=== PATIENT | female | born 1990 | race Two or more races ===

== ENCOUNTER 2022-06-21 07:03 | Inpatient (IN) ==
--- NOTE | 2022-06-10 08:49 | Anesthesiology Consultation ---
Date of Service June 10, 2022 Assessment & Plan (1) Encounter for pre-operative examination: COVID screening: Per assessment on 06/10: No known COVID-19 positive contacts or current COVID-19 related symptoms. Travel screen negative. Patient vaccinated. At surgeon discretion if preop Covid testing being done. 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 Surgery Operation Date: 06/21/22 08:50 Proposed Procedures p Primary Section - Karin Aguillon MD Height/Weight Height: 5 ft Weight: 77.111 kg Allergies Allergy/AdvReac Type Severity Reaction Status Date / Time No Known Allergies Allergy Verified 06/10/22 08:00 Medications Home Medications Medication Instructions Recorded Confirmed Last Taken famotidine 20 mg tablet (Pepcid) 20 mg PO DAILY PRN Acid Reflux 06/10/22 06/10/22 Unknown vitamins no.144-folic 2 tab PO QAM 06/10/22 06/10/22 Unknown acid 400 mcg chewable tablet () Past Medical History Medical History Acid reflux History of COVID-19 03/2022 (> 90 days ago) > mild symptoms, resolved Past Family History Family History Other No family history of adverse response to anesthesia Past Surgical History Surgical History History of esophagogastroduodenoscopy (EGD) Social History Smoking Status: Former smoker tobacco type: cigarettes Smoking End Date: ONLY TEENAGER Hx Alcohol Use: No substance use type: does not use
[~2022-06-21 07:03] MED LIST: CITRIC ACID/SODIUM CITRATE 15 ML UDC PO SCH; ceFAZolin 2000MG 2,000 MG/15 ML SYR IV SCH
[2022-06-21] MEDS ORDERED: LACTATED RINGER'S 1,000 ML IV SCH ×2 (07:45→13:15)
[2022-06-21 07:53] LABS: Basophils # (auto) 0.04 K/uL (0-0.2); Basophils % (auto) 0.3 %; Eosinophils % (auto) 0.8 %; Hematocrit (blood only) 33.9 % (34.1-44.9); Hemoglobin 11.1 g/dl (12.0-16.0); Immature Granulocytes # (auto) 0.11 K/uL (0.00-0.02); Immature Granulocytes % (auto) 0.9 %; Lymphocytes # (auto) 2.52 K/uL (1.2-3.4); Lymphocytes % (auto) 19.7 %; Mean Corpuscular Hemoglobin 26.7 pg (25.0-34.0); Mean Corpuscular Hgb Conc 32.7 g/dL (32.0-36.0); Mean Corpuscular Volume 81.5 fL (80.0-100.0); Mean Platelet Volume 10.2 fL (9.4-12.3); Monocytes # (auto) 0.92 K/uL (0.24-0.82); Monocytes % (auto) 7.2 %; Neutrophils # (auto) 9.12 K/uL (1.4-6.5); Neutrophils % (auto) 71.1 %; Platelet Count 362 K/uL (130-400); RDW Coefficient of Variation 14.8 % (11.5-14.5); RDW Standard Deviation 43.1 fL (36.4-46.3); Red Blood Count 4.16 M/uL (3.93-5.22); White Blood Count 12.81 K/ul (4.8-10.8)
[2022-06-21] MEDS ORDERED: fentaNYL citrate 100 MCG/2 ML VIAL ONE (07:58)
[2022-06-21] MEDS ORDERED: MoRPHine SULFATE PF 1 MG/ML 10 ML AMP/VIAL ONE (07:58)
[2022-06-21] MEDS ORDERED: KETOROLAC 30 MG/ML VIAL ONE (08:03)
[2022-06-21] MEDS ORDERED: OXYTOCIN 10 UNITS/ML 10ML VIAL ONE (08:03)
[2022-06-21] MEDS ORDERED: ONDANSETRON INJ 2 MG/ML 2 ML VIAL ONE (08:03)
--- NOTE | 2022-06-21 11:52 | History & Physical Bridge Note ---
Date of Service June 21, 2022 History & Physical Bridge Note I have examined the patient, reviewed the History & Physical and in the interval since the performance of the History & Physical I have noted the following changes of clinical significance: no changes noted Bed side US: Carmencita, FHR 140 Signed and informed consent.
[2022-06-21] MEDS ORDERED: NALOXONE HCL 1 MG in SODIUM CHLORIDE 0.9% 1000ML 1,000 ML IV PRN (12:20)
[2022-06-21] MEDS ORDERED: HYDROmorphone INJ 0.5 MG/0.5 ML SYR IV PRN (12:20)
[2022-06-21] MEDS ORDERED: MoRPHine SULFATE PF 1 MG/ML 10 ML AMP/VIAL INT SPINAL ONE (12:20)
[2022-06-21] MEDS ORDERED: NALBUPHINE HCL INJ 10 MG/ML AMP IV PRN (12:20)
[2022-06-21] MEDS ORDERED: ACETAMINOPHEN 1000 MG/100 ML IV IV PRN (12:20)
[2022-06-21] MEDS ORDERED: NALOXONE HCL 0.4 MG/1 ML VIAL/CARP IV PRN (12:20)
[2022-06-21] MEDS ORDERED: LACTATED RINGER'S 500 ML IV PRN (12:20)
[2022-06-21] MEDS ORDERED: PROMETHAZINE HCL 12.5 MG in SODIUM CHLORIDE 0.9% 50 ML IV PRN (12:20)
[2022-06-21] MEDS ORDERED: ONDANSETRON INJ 2 MG/ML 2 ML VIAL IV PRN (12:20)
[2022-06-21] MEDS ORDERED: NALOXONE HCL 0.08 MG in SYRINGE 1.8 ML IV PRN (12:20)
[2022-06-21] MEDS ORDERED: diphenhydrAMINE 50 MG/ML VIAL IV PRN (12:20)
[2022-06-21] MEDS ORDERED: ePHEDrine sulfate 50 MG/ML AMP IV PRN (12:20)
[2022-06-21] MEDS ORDERED: DC INTRASPINAL MORPHINE SCH (12:30)
[2022-06-21] MEDS ORDERED: NO NARCOTICS OR SEDATIVES SCH (12:30)
[2022-06-21] MEDS ORDERED: SODIUM CHLORIDE 0.9% 1000ML 1,000 ML IV SCH (12:30)
[2022-06-21] MEDS ORDERED: HYDROCORTISONE ACETATE 25 MG SUPP PR PRN (13:03)
[2022-06-21] MEDS ORDERED: MAGNESIUM HYDROXIDE SUSP 30 ML UDC PO PRN (13:03)
[2022-06-21] MEDS ORDERED: BENZOCAINE 20% AER SPR 82.5 GM CAN EXT PRN (13:03)
[2022-06-21] MEDS ORDERED: SENNA 8.6 MG TAB PO PRN (13:03)
[2022-06-21] MEDS ORDERED: DIPHTHERIA/TETANUS/PERTUSSIS 0.5 ML SYR/VIAL IM ONE (13:03)
[2022-06-21] MEDS ORDERED: OXYTOCIN 20 UNITS in D5W AND LACTATED RINGERS 1,000 ML IV SCH (13:30)
[2022-06-21] MEDS: KETOROLAC 30 MG/ML VIAL IV PRN ×2 (13:53→20:45)
--- NOTE | 2022-06-21 14:04 | History & Physical Bridge Note ---
Date of Service June 21, 2022 History & Physical Bridge Note I have examined the patient, reviewed the History & Physical and in the interval since the performance of the History & Physical I have noted the following changes of clinical significance: no changes noted
--- NOTE | 2022-06-21 14:05 | Post Operative Brief Note ---
Immediate Post Op Note v1 Date of Surgery June 21, 2022 Pre & Post Diagnosis Operation Date: 06/21/22 08:50 Pre-Op Diagnosis: term intrauterine breech presentation low transverse uterine section Post-Op Diagnosis: low transverse section I identified the patient and participated in the time-out.: Yes Procedure Operation Date: 06/21/22 08:50 Actual Procedures p Section in LD live female at 1230 - Karin Aguillon MD Surgeon Karin Aguillon MD Cleaner Signs YESENIA Sinclair Estimated Blood Loss 400 Findings Consistent with Post-Op Diagnosis Drains Rueda Catheter Anesthesia Type Spinal Complications none
--- NOTE | 2022-06-21 14:22 | Anesthesiology Progress Note ---
Date of Service June 21, 2022 Anesthesia Post Procedure Vital Signs Vital Signs: Temp Pulse Resp BP Pulse Ox 06/21/22 14:16 20 06/21/22 14:06 18 06/21/22 13:56 18 06/21/22 13:46 18 06/21/22 13:36 16 06/21/22 13:20 98.2 F 18 06/21/22 07:45 99.1 F 20 06/21/22 14:19 77 98 06/21/22 14:15 73 147/65 H 06/21/22 14:14 87 98 06/21/22 14:09 76 95 06/21/22 14:05 160 H 127/56 L 06/21/22 14:04 83 98 06/21/22 13:59 73 99 06/21/22 13:57 66 120/64 06/21/22 13:54 72 98 06/21/22 13:49 70 97 06/21/22 13:45 141 H 127/59 L 06/21/22 13:44 77 98 06/21/22 13:35 203 H 129/78 06/21/22 13:34 68 90 06/21/22 13:31 66 91 06/21/22 13:29 64 100 06/21/22 13:25 90 06/21/22 13:25 64 06/21/22 13:25 62 123/71 06/21/22 13:24 65 100 06/21/22 13:19 66 100 06/21/22 13:15 65 121/68 06/21/22 07:19 80 120/76 Pain Intensity Bilateral Lower Abdomen: Pain Intensity: 4 Transfer of Care Handoff Completed per policy Notes Mental Status: alert / awake / arousable and participated in evaluation Patient Amnestic to Procedure: Yes Nausea / Vomiting: adequately controlled Pain: adequately controlled Airway Patency, RR, SpO2: stable & adequate BP & HR: stable & adequate Hydration State: stable & adequate Neuraxial Anesthesia: was administered and sensory block is resolving Anesthetic Complications: no major complications apparent and Pt Satisfied with anesthetic care
--- NOTE | 2022-06-21 14:31 | Operative Report (OR) ---
DATE OF PROCEDURE: 06/21/2022. PREOPERATIVE DIAGNOSES: The patient is a 32-year-old G1, P0, at 39.3 weeks of gestation with breech presentation, desire for primary . POSTOPERATIVE DIAGNOSES: The patient is a 32-year-old G1, P0, at 39.3 weeks of gestation with breech presentation, desire primary . PROCEDURE: Primary low transverse with Pfannenstiel skin incision. SURGEON: Karin Aguillon MD VISUAL DESIGN LEAD: YESENIA Veronica. ESTIMATED BLOOD LOSS: 500 mL DRAINS: Rueda catheter drained 200 mL of clear urine. ANESTHESIA: Spinal. Dr. Worrell. COMPLICATIONS: None. FINDINGS: Baby was a viable female delivered at 12:30 p.m. Apgars were 9/9, weight was 3312 grams. Baby was in a segun breech presentation. Maternal findings; normal uterus, fallopian tubes, and polycystic appearance of ovaries. DESCRIPTION OF PROCEDURE: The patient was taken to the operating room where spinal anesthesia was given without difficulty. She was placed in dorsal supine position with a leftward tilt. She was prepared and draped in the usual sterile fashion. A Pfannenstiel skin incision was made and carried through to the underlying layer of fascia with the Bovie. Fascia was incised in the midline and incision was extended laterally with the help of Sosa scissors. Lower aspect of the fascial incision was then grasped with 2 Ghulam clamps, elevated, and underlying rectus muscles were dissected off sharply with Sosa scissors. Same thing was done on the upper aspect of the fascial incision. Rectus muscles were in the midline. The peritoneum was entered bluntly with fingers. Peritoneal incision was extended superiorly and inferiorly with good visualization of bladder. Bladder blade was inserted. Vesicouterine peritoneum was identified, grasped with pickups, and entered sharply with Metzenbaum scissors and a bladder flap was created digitally and bladder blade was reinserted. Lower uterine segment was incised in transverse fashion. Incision was extended laterally with the help of Sosa scissors and the baby's buttocks were delivered and then the legs and then body and arms in flexion position and then followed by head without difficulty. Mouth and nose were suctioned. Cord was clamped x2 and cut and baby was handed off to the waiting pediatric team with Dr. Porter. Placenta was delivered manually as intact and complete. Uterus was exteriorized and cleared of all clots and debris. Uterine incision was repaired with 0 Vicryl in a running locked fashion and a second imbricating layer was placed with another 2-0 Vicryl in a running locked fashion. Excellent hemostasis was achieved. Cul-de-sac was irrigated with warm normal saline and suctioned. The ovaries appeared to be polycystic with multiple peripheral small mm'ic follicles with no discrete nor large cyst. It was also slightly larger in size with increased stroma as would be expected for polycystic ovaries. Bilateral fallopian tubes and posterior serosa wer WNL. Uterus was returned to the abdomen. Pelvis was irrigated with warm normal saline and suctioned. Incision was checked to be again hemostatic. Parietal peritoneum was reapproximated with 3-0 Vicryl in a running fashion. The rectus muscles were reapproximated with the same suture in a running fashion. Rectus fascia was closed with 0 Vicryl in a running fashion. Subcuticular fat tissue was brought together with 2-0 Vicryl in a running fashion. The skin was closed with 4-0 Monocryl in a subcuticular fashion. The patient tolerated the procedure well. Sponge, lap, needle count was correct x3. No complications happened. I was present and my PA, was present during whole procedure. The patient was taken to the recovery room in stable condition. Job ID: [id number] [facility]
[2022-06-21] MEDS: SIMETHICONE 80 MG CHEW PO SCH ×2 (17:33→20:44)
[2022-06-21] MEDS: DOCUSATE SODIUM 100 MG CAP PO SCH (20:44)
[2022-06-21] MEDS ORDERED: OXYTOCIN 20 UNITS in LACTATED RINGER'S 1,000 ML IV SCH (21:30)
[2022-06-22] MEDS: KETOROLAC 30 MG/ML VIAL IV PRN (06:24)
[2022-06-22] MEDS ORDERED: diphenhydrAMINE 50 MG/ML VIAL IV PRN (06:25)
[2022-06-22] MEDS ORDERED: PROMETHAZINE HCL 25 MG in SODIUM CHLORIDE 0.9% 50 ML IV PRN (06:25)
[2022-06-22] MEDS ORDERED: diphenhydrAMINE Capsule 25 MG CAP PO PRN (06:25)
[2022-06-22] MEDS ORDERED: ONDANSETRON INJ 2 MG/ML 2 ML VIAL IV PRN (06:25)
[2022-06-22 06:37] LABS: Basophils # (auto) 0.03 K/uL (0-0.2); Basophils % (auto) 0.3 %; Eosinophils % (auto) 0.9 %; Hematocrit (blood only) 27.8 % (34.1-44.9); Hemoglobin 9.2 g/dl (12.0-16.0); Immature Granulocytes # (auto) 0.08 K/uL (0.00-0.02); Immature Granulocytes % (auto) 0.7 %; Lymphocytes # (auto) 2.08 K/uL (1.2-3.4); Lymphocytes % (auto) 18.9 %; Mean Corpuscular Hemoglobin 26.8 pg (25.0-34.0); Mean Corpuscular Hgb Conc 33.1 g/dL (32.0-36.0); Mean Platelet Volume 9.5 fL (9.4-12.3); Monocytes # (auto) 0.78 K/uL (0.24-0.82); Monocytes % (auto) 7.1 %; Neutrophils # (auto) 7.96 K/uL (1.4-6.5); Neutrophils % (auto) 72.1 %; Platelet Count 261 K/uL (130-400); RDW Coefficient of Variation 14.6 % (11.5-14.5); RDW Standard Deviation 42.5 fL (36.4-46.3); Red Blood Count 3.43 M/uL (3.93-5.22); White Blood Count 11.03 K/ul (4.8-10.8)
[2022-06-22] MEDS: SIMETHICONE 80 MG CHEW PO SCH ×4 (09:10→20:31)
[2022-06-22] MEDS: DOCUSATE SODIUM 100 MG CAP PO SCH ×2 (09:11→20:34)
[2022-06-22] MEDS: FERROUS SULFATE 325 MG TAB PO SCH (09:11)
[2022-06-22] MEDS: PRENATAL VITAMIN 1 TAB PO SCH (09:11)
--- NOTE | 2022-06-22 10:36 | Obstetrical Progress Note ---
Date of Service June 22, 2022 Assessment & Plan (1) delivery delivered: C/sec day #2 pt doing well continue day 2 care Subjective Ambulation: ambulating normally Voiding: no voiding problems Passing Gas:: Yes Diet Tolerance:: clear liquids Lochia:: Small Feeding Type:: breast feeding Review of Systems All systems reviewed & are unremarkable except as noted in HPI & below Physical Exam Constitutional WD/WN, vitals as above well developed and well nourished Eyes PERRL, conjunctivae normal, anicteric sclerae ENMT external ear and nose normal, oropharynx normal Neck trachea midline, no thyromegaly Respiratory normal respiratory effort, lungs clear to auscultation Cardiovascular RRR, no murmur, no edema Chest (Breasts) normal inspection/palpation of breasts Gastrointestinal (Abdomen) normal bowel sounds, soft, nontender, no hepatosplenomegaly Musculoskeletal no cyanosis or clubbing, extremities motor strength 5/5 Skin no rashes, warm and dry + incision (Clean,dry and intact) Neurologic patellar DTR's 2+ bilat, sensation intact Psychiatric A+Ox3, euthymic affect Genitourinary normal external appearance Lymphatic no cervical or axillary lymphadenopathy Results & Data ([facility]) Vital Signs (Past 12 Hours) Vital Signs Temp Pulse Resp BP BP Pulse Ox O2 Del Method 06/22/22 07:50 37.2 C 71 16 107/70 98 Room Air 06/22/22 06:05 18 98 06/22/22 05:00 18 97 06/22/22 04:00 37.1 C 73 18 116/77 98 Room Air 06/22/22 04:00 18 98 06/22/22 03:00 16 96 06/22/22 02:00 18 97 06/22/22 00:57 18 95 06/21/22 23:30 37.0 C 62 16 113/72 99 Room Air 06/22/22 00:06 16 97 06/21/22 23:00 18 99
[2022-06-22] MEDS: IBUPROFEN 600 MG TAB PO PRN ×3 (12:34→21:44)
[2022-06-22] MEDS: oxyCODONE/ACETAMINOPHEN 5mg/325mg TAB PO PRN ×3 (12:35→21:45)
[2022-06-22] MEDS ORDERED: bisacodyL 5 MG TABEC PO SCH (20:00)
[2022-06-23] MEDS: IBUPROFEN 600 MG TAB PO PRN ×3 (02:34→12:25)
[2022-06-23] MEDS: oxyCODONE/ACETAMINOPHEN 5mg/325mg TAB PO PRN ×3 (02:34→12:24)
[2022-06-23 06:49] LABS: Hematocrit (blood only) 28.1 % (34.1-44.9); Hemoglobin 9.1 g/dl (12.0-16.0)
[2022-06-23] MEDS: SIMETHICONE 80 MG CHEW PO SCH ×2 (08:28→12:36)
[2022-06-23] MEDS: DOCUSATE SODIUM 100 MG CAP PO SCH (08:28)
[2022-06-23] MEDS: FERROUS SULFATE 325 MG TAB PO SCH (08:29)
[2022-06-23] MEDS: PRENATAL VITAMIN 1 TAB PO SCH (08:29)
--- NOTE | 2022-06-23 11:19 | Obstetrical Progress Note ---
Date of Service June 23, 2022 Subjective Ambulation: ambulating normally Voiding: no voiding problems Passing Gas:: Yes Diet Tolerance:: regular diet Lochia:: Small Feeding Type:: breast feeding Current Pain Level(1-10): 0 doing well/wants to go home today Physical Exam Constitutional WD/WN, vitals as above Gastrointestinal (Abdomen) normal bowel sounds, soft, nontender, no hepatosplenomegaly Inspection/Auscultation: + abdominal surgical incision incision c/d/i Musculoskeletal Extremities: extremities normal to inspection neg Miguel Ángel's Skin no rashes, warm and dry Neurologic patellar DTR's 2+ bilat, sensation intact Psychiatric A+Ox3, euthymic affect Results & Data ([facility]) Vital Signs (Past 12 Hours) Vital Signs Temp Pulse Resp BP Pulse Ox O2 Del Method 06/23/22 07:35 37.2 C 74 18 122/80 100 Room Air 06/22/22 23:40 37.2 C 66 18 134/81 Laboratory Results 06/21/22 06/21/22 06/21/22 07:16 07:20 07:28 WBC 12.81 H RBC 4.16 Hgb 11.1 L Hct 33.9 L MCV 81.5 MCH 26.7 MCHC 32.7 RDW Std Deviation 43.1 RDW Coeff of [place] 14.8 H Plt Count 362 MPV 10.2 Immature Gran % (Auto) 0.9 Neut % (Auto) 71.1 Lymph % (Auto) 19.7 [place] % (Auto) 7.2 Eos % (Auto) 0.8 Baso % (Auto) 0.3 Neut # (Auto) 9.12 H Lymph # (Auto) 2.52 [place] # (Auto) 0.92 H Eos # (Auto) 0.10 Baso # (Auto) 0.04 Immature Gran # (Auto) 0.11 H SARS-CoV-2, RNA, NAAT NEGATIVE Blood Type O Negative Antibody Screen NEGATIVE 06/22/22 06/23/22 06:20 06:00 WBC 11.03 H RBC 3.43 L Hgb 9.2 L 9.1 L Hct 27.8 L 28.1 L MCV 81.0 MCH 26.8 MCHC 33.1 RDW Std Deviation 42.5 RDW Coeff of [place] 14.6 H Plt Count 261 MPV 9.5 Immature Gran % (Auto) 0.7 Neut % (Auto) 72.1 Lymph % (Auto) 18.9 [place] % (Auto) 7.1 Eos % (Auto) 0.9 Baso % (Auto) 0.3 Neut # (Auto) 7.96 H Lymph # (Auto) 2.08 [place] # (Auto) 0.78 Eos # (Auto) 0.10 Baso # (Auto) 0.03 Immature Gran # (Auto) 0.08 H SARS-CoV-2, RNA, NAAT Blood Type Antibody Screen
[2022-06-23] MEDS ORDERED: bisacodyL 10 MG SUPP PR PRN (13:03)
== END 2022-06-23 13:42 | disposition home or self-care (01) | DRG 785 ==
LOC: 4S1 07:03 → EDSTATUS 08:50 → 4E2 16:36